=== PATIENT | female | born 1965 | race Caucasian/White ===

== ENCOUNTER 2016-07-07 23:51 | Emergency (ER) | payer MEDICARE ==
[~2016-07-07] VITALS: Ht 160 cm; Wt 61.2 kg
[~2016-07-07 23:51] MED LIST: ASMANEX 2214 PUFF/IN INH; B-12500 MCG PO; CELEBREX200 MG PO; DAILY VALUE1 EACH PO; DEPAKOTE ER500 MG PO; FOLIC ACID0.8 MG PO; HALFPRIN81 MG PO; HYDROCHLOROTHIA25 MG PO; MIRALAX17 GM PO; MORPHINE SULFAT45 MG PO; MS CONTIN30 MG PO; NEURONTIN600 M1 PO; NITROSTAT0.4 MG SL; NORVASC5 M1 PO; NORVASC5 MG PO; OXYCODONE HCL5 MG PO; PRAVACHOL80 MG PO; PRILOSEC40 MG PO; PROVENTIL2.5 MG/3 M INH; PULMICORT FLE180 MCG INH; REMERON15 MG PO; SENNA-TIME S1 TAB PO; SEROQUEL XR200 MG PO; SYNTHROID50 MCG PO; TRAZODONE HCL150 MG PO; XANAX0.25 MG PO; XANAX0.5 M1 PO
[2016-07-08] MEDS ORDERED: XANAX0.5 MG PO ×2 (00:43→00:44)
[2016-07-08] MEDS ORDERED: AMBIEN10 MG PO (00:45)
[2016-07-08] MEDS ORDERED: ARTHRITIS PAI42.5 GM TOP (00:48)
[2016-07-08] MEDS ORDERED: PROZAC20 MG PO (00:49)
[2016-07-08] MEDS ORDERED: LAMICTAL25 MG PO (00:51)
[2016-07-08] MEDS ORDERED: LIDODERM 5%1 PATCH TOP (00:53)
[2016-07-08] MEDS ORDERED: MAGINEX61 MG PO (00:54)
[2016-07-08] MEDS ORDERED: SEROQUEL50 MG PO (01:00)
[2016-07-08] MEDS ORDERED: SYMBICORT 160-4.6 GM INH (01:00)
== END 2016-07-08 02:35 | disposition short-term general hospital (02) ==
LOC: ER 23:51
DX: R41.82 Altered mental status, unspecified (principal); R09.02 Hypoxemia; R79.89 Other specified abnormal findings of blood chemistry; D72.829 Elevated white blood cell count, unspecified; J45.909 Unspecified asthma, uncomplicated; F31.9 Bipolar disorder, unspecified; E03.9 Hypothyroidism, unspecified; G47.00 Insomnia, unspecified; F17.210 Nicotine dependence, cigarettes, uncomplicated; Z79.82 Long term (current) use of aspirin; Z79.899 Other long term (current) drug therapy
CPT/HCPCS: G0477

== ENCOUNTER → 2016-07-24 | Outpatient (CLI) | payer MEDICARE ==
[~2016-07-24] MED LIST changes: +AMBIEN10 MG PO; +ARTHRITIS PAI42.5 GM TOP; +LAMICTAL25 MG PO; +LIDODERM 5%1 PATCH TOP; +MAGINEX61 MG PO; +PROZAC20 MG PO; +SEROQUEL50 MG PO; +SYMBICORT 160-4.6 GM INH; +XANAX0.5 MG PO
== END | disposition short-term general hospital (02) ==
LOC: CLPULM 12:38
DX: J44.9 Chronic obstructive pulmonary disease, unspecified (principal); I35.1 Nonrheumatic aortic (valve) insufficiency; I34.0 Nonrheumatic mitral (valve) insufficiency; I51.89 Other ill-defined heart diseases; I27.2 Other secondary pulmonary hypertension; G89.29 Other chronic pain; F32.9 Major depressive disorder, single episode, unspecified; G43.909 Migraine, unspecified, not intractable, without status migrainosus; E03.9 Hypothyroidism, unspecified; K21.9 Gastro-esophageal reflux disease without esophagitis; F43.10 Post-traumatic stress disorder, unspecified; Z72.0 Tobacco use; Z87.828 Personal history of other (healed) physical injury and trauma; Z90.81 Acquired absence of spleen; Z87.09 Personal history of other diseases of the respiratory system

== ENCOUNTER → 2016-08-02 | Outpatient (CLI) | payer MEDICARE | END | disposition short-term general hospital (02) | LOC: CLCARD 11:10 | DX: I38 Endocarditis, valve unspecified (principal); I35.1 Nonrheumatic aortic (valve) insufficiency; I34.0 Nonrheumatic mitral (valve) insufficiency; R07.9 Chest pain, unspecified; R06.02 Shortness of breath; J44.9 Chronic obstructive pulmonary disease, unspecified; I27.2 Other secondary pulmonary hypertension; J90 Pleural effusion, not elsewhere classified; E78.5 Hyperlipidemia, unspecified; R94.31 Abnormal electrocardiogram [ECG] [EKG]; Z72.0 Tobacco use ==

== ENCOUNTER → 2016-08-17 | Outpatient (CLI) | payer MEDICARE | END | disposition short-term general hospital (02) | LOC: CLPAIN 10:13 | DX: M47.897 Other spondylosis, lumbosacral region (principal); G89.4 Chronic pain syndrome; M47.812 Spondylosis without myelopathy or radiculopathy, cervical region; F11.20 Opioid dependence, uncomplicated; M70.61 Trochanteric bursitis, right hip; F45.42 Pain disorder with related psychological factors; F31.9 Bipolar disorder, unspecified ==